=== PATIENT | female | born 1980 | race Caucasian/White ===

== ENCOUNTER 2021-06-21 16:50 | Emergency (ER) | payer BC ==
[~2021-06-21] VITALS: Ht 162.6 cm; Wt 84.0 kg
[2021-06-21 18:44] LABS: BASO # 0.1 x10^3/uL (0.0-0.2); BASO % 1 % (0-3); EOS % 0 % (0-3); HEMATOCRIT 39.2 % (36.0-47.0); HEMOGLOBIN 13.1 g/dL (12.0-15.5); LYMPH # 1.5 x10^3/uL (1.0-4.8); LYMPH % 18 % (24-48); MEAN CORPUSCULAR HEMOGLOBIN 31 pg (25-35); MEAN CORPUSCULAR HGB CONC 34 g/dL (31-37); MEAN CORPUSCULAR VOLUME 93 fL (79-100); MONO # 0.8 x10^3/uL (0.0-1.1); MONO % 9 % (0-9); NEUT # 6.2 x10^3/uL (1.8-7.7); NEUT % 72 % (31-73); PLATELET COUNT 314 x10^3/uL (140-400); RED BLOOD COUNT 4.24 x10^6/uL (3.50-5.40); RED CELL DISTRIBUTION WIDTH 14.1 % (11.5-14.5); WHITE BLOOD COUNT 8.5 x10^3/uL (4.0-11.0)
[2021-06-21] MEDS ORDERED: ONDANSETRON PF 4 MG/2 ML VIAL. IVP ONE (18:45)
[2021-06-21 19:16] LABS: CALCIUM 8.8 mg/dL (8.5-10.1); CREATININE 0.9 mg/dL (0.6-1.0); GFR 69.7; POTASSIUM 3.7 mmol/L (3.5-5.1)
[2021-06-21 19:23] LABS: PREG TEST PT QUAL NEGATIVE (NEG)
[2021-06-21 19:28] LABS: ALBUMIN/GLOBULIN RATIO 1.1 (1.0-1.7); MAGNESIUM 2.3 mg/dL (1.8-2.4); TOTAL BILIRUBIN 0.2 mg/dL (0.2-1.0); TOTAL PROTEIN 7.8 g/dL (6.4-8.2)
--- NOTE | 2021-06-21 19:30 | EKG ---
[facility] [address] [place] [address] Test Date: 2021-06-21 Test Time: 18:38:28 Pat Name: MARCOS YOO Department: Room: Gender: F Surgery Aide: : 1980 Requested By: DEDE THORNE Order Number: [id number] Reading MD: Measurements Intervals Dittmer Rate: 57 P: 46 NM: 178 QRS: 62 QRSD: 88 T: 53 QT: 456 QTc: 447 Interpretive Statements SINUS RHYTHM S1,S2,S3 PATTERN T ABNORMALITY IN ANTEROSEPTAL LEADS ABNORMAL ECG RI6.02 No previous ECG available for comparison
--- NOTE | 2021-06-21 20:35 | RAD ---
Exam Date: 06/21/2021 8:06 PM XR CHEST 1V Indication: Reason: dizzy, palpitations / Spl. Instructions: / History: . FINDINGS/ IMPRESSION: The cardiac silhouette and pulmonary vasculature are within normal limits. There is no focal consolidation, pleural effusion or pneumothorax. The visualized osseous structures are intact. Electronically signed by: Cheo Davis MD (06/21/2021 8:33 PM) [facility]
[2021-06-21 21:46] LABS: BARBITURATES NEG (NEG); BENZODIAZEPINES NEG (NEG); CANNABINOIDS NEG (NEG); COCAINE NEG (NEG); METHADONE NEG (NEG); OPIATES NEG (NEG); PHENCYCLIDINE NEG (NEG)
[2021-06-21 21:51] LABS: AMPHETAMINE/METHAMPHETAMINE NEG (NEG)
--- NOTE | 2021-06-21 23:00 | PHYS DOC ---
Past Medical History Past Surgical History: No Surgical History Smoking Status: Never Smoker Alcohol Use: None General Adult EDM: Chief Complaint: DIZZY/LIGHT HEADED HPI: HPI: 41-year-old female who denies any significant past medical history, presents to the ED with complaints of " I feel like it was in a wave or a bubble," while walking back into her house after picking her kids up after work. Patient states she felt dizzy, her heart was racing, she became hot and clammy, had a headache and felt chest pressure, unsure if she was scared but states she wanted to hold her chest. States she felt like she was going to fall backwards and was woozy. Reports associated shortness of breath and nausea stating it felt like she was having a panic attack but has never had associated dizziness with it. Denies any associated fogginess, abdominal pain, achiness, lightheadedness or syncope. No prior history of syncope. States she worked outside today and has not eaten very much, only drink 32 ounces of water and was sweating a lot today (60 degrees outside today). LMP was 2 weeks ago. Reports she vapes daily and usually drinks about 2 beers and 1 shot to, to help her sleep at night. Oral meth user but quit in 2010. Denies any cocaine or methamphetamine abuse. Takes no routine prescribed medications. Has not been vaccinated for Covid. Had COVID twice, once in June 2020 and the second time in May 2021. Reports her brother and both grandparents have a history of coronary disease. Father with history of brain aneurysm. No personal or family history of AAA, AAD, CTD (ehlos danlos or marfans), cardiac arrhythmias (need for AICD), sudden or unexplainable (under 50 years of age or with exertion), or clotting disorders. Patient denies any past surgical history or hospitalizations. Review of Systems: Review of Systems: Constitutional: Denies fever or chills. [] Eyes: Denies change in visual acuity. [] HENT: Denies nasal congestion or sore throat. [] Respiratory: Denies cough or hemoptysis Cardiovascular: Denies syncope or edema. [] GI: Denies abdominal pain, vomiting, bloody stools or diarrhea. [] : Denies dysuria or vaginal bleeding Musculoskeletal: Denies back pain or joint pain. [] Integument: Denies rash or blistering lesions Neurologic: Denies neck stiffness, focal weakness or sensory changes. [] Endocrine: Denies polyuria or polydipsia. [] Lymphatic: Denies swollen glands. [] Psychiatric: Denies depression or anxiety. [] Heart Score: C/O Chest Pain: Yes HEART Score for Chest Pain: HEART Score for Chest Pain Response (Comments) Value History Slighlty/Non-Suspicious 0 ECG Nonspecific Repolarizatio 1 Age < 45 0 Risk Factors 1 or 2 Risk Factors 1 Troponin < Normal Limit 0 Total 2 Risk Factors: Risk Factors: DM, Current or recent (<one month) smoker, HTN, HLP, family history of CAD, obesity. Risk Scores: Score 0 - 3: 2.5% MACE over next 6 weeks - Discharge Home Score 4 - 6: 20.3% MACE over next 6 weeks - Admit for Clinical Observation Score 7 - 10: 72.7% MACE over next 6 weeks - Early Invasive Strategies Current Medications: Current Medications Medications (Trade) Dose Ordered Sig/Yousif Start Time Stop Time Status Last Admin Dose Admin Ondansetron HCl (Zofran) 4 mg 1X ONCE 06/21/21 18:45 06/21/21 18:47 DC Allergies: Allergies: Allergies Coded Allergies Type Severity Reaction Last Updated Verified No Known Drug Allergies 06/21/21 No Physical Exam: PE: Constitutional: Well developed, well nourished, no acute distress, non-toxic appearance. HENT: Normocephalic, atraumatic, Eyes: EOMI, conjunctiva normal, no discharge. Neck: Normal range of motion, supple, Cardiovascular: S1/2 present, regular rhythm Lungs & Thorax: Speaking in full sentences, bilateral equal chest rise, no tachypnea or increased work of breathing Abdomen: soft, no tenderness, Skin: Warm, dry, no erythema, no rash. [] Back: No tenderness, no CVA tenderness. [] Extremities: No tenderness, no cyanosis, no lower extremity edema Neurologic: Alert and oriented X 3, normal motor function, normal sensory function, no focal deficits noted. [] Psychologic: Affect normal, judgement normal, mood normal. [] Current Patient Data: Labs: Laboratory Tests Test 06/21/21 18:35 06/21/21 21:15 06/21/21 21:40 White Blood Count 8.5 x10^3/uL (4.0-11.0) Red Blood Count 4.24 x10^6/uL (3.50-5.40) Hemoglobin 13.1 g/dL (12.0-15.5) Hematocrit 39.2 % (36.0-47.0) Mean Corpuscular Volume 93 fL (79-100) Mean Corpuscular Hemoglobin 31 pg (25-35) Mean Corpuscular Hemoglobin Concent 34 g/dL (31-37) Red Cell Distribution Width 14.1 % (11.5-14.5) Platelet Count 314 x10^3/uL (140-400) Neutrophils (%) (Auto) 72 % (31-73) Lymphocytes (%) (Auto) 18 % (24-48) L Monocytes (%) (Auto) 9 % (0-9) Eosinophils (%) (Auto) 0 % (0-3) Basophils (%) (Auto) 1 % (0-3) Neutrophils # (Auto) 6.2 x10^3/uL (1.8-7.7) Lymphocytes # (Auto) 1.5 x10^3/uL (1.0-4.8) Monocytes # (Auto) 0.8 x10^3/uL (0.0-1.1) Eosinophils # (Auto) 0.0 x10^3/uL (0.0-0.7) Basophils # (Auto) 0.1 x10^3/uL (0.0-0.2) D-Dimer (Bette) < 0.27 ug/mlFEU Sodium Level 140 mmol/L (136-145) Potassium Level 3.7 mmol/L (3.5-5.1) Chloride Level 103 mmol/L (98-107) Carbon Dioxide Level 27 mmol/L (21-32) Anion Gap 10 (6-14) Blood Urea Nitrogen 16 mg/dL (7-20) Creatinine 0.9 mg/dL (0.6-1.0) Estimated GFR (Cockcroft-Gault) 69.7 BUN/Creatinine Ratio 18 (6-20) Glucose Level 103 mg/dL (70-99) H Calcium Level 8.8 mg/dL (8.5-10.1) Phosphorus Level 4.3 mg/dL (2.6-4.7) Magnesium Level 2.3 mg/dL (1.8-2.4) Total Bilirubin 0.2 mg/dL (0.2-1.0) Aspartate Amino Transferase (AST) 19 U/L (15-37) Alanine Aminotransferase (ALT) 18 U/L (14-59) Alkaline Phosphatase 36 U/L (46-116) L Troponin I High Sensitivity 7 ng/L (4-50) 8 ng/L (4-50) Total Protein 7.8 g/dL (6.4-8.2) Albumin 4.0 g/dL (3.4-5.0) Albumin/Globulin Ratio 1.1 (1.0-1.7) Serum Test, Qualitative Negative (NEG) Urine Opiates Screen Neg (NEG) Urine Methadone Screen Neg (NEG) Urine Barbiturates Neg (NEG) Urine Phencyclidine Screen Neg (NEG) Urine Amphetamine/Methamphetamine Neg (NEG) Urine Benzodiazepines Screen Neg (NEG) Urine Cocaine Screen Neg (NEG) Urine Cannabinoids Screen Neg (NEG) Urine Ethyl Alcohol Neg (NEG) Laboratory Tests 06/21/21 18:35 Laboratory Tests 06/21/21 18:35 Vital Signs: Vital Signs Date Time Temp Pulse Resp B/P (MAP) Pulse Ox O2 Delivery O2 Flow Rate FiO2 06/21/21 21:55 60 20 130/69 (89) 97 Room Air 06/21/21 17:13 97.9 97.9 EKG: EK sinus bradycardia 57 bpm, no axis deviation, normal intervals, T wave inversion V2 and V3, no ST elevation or ST depression RN reported bigeminy on mobile developer on arrival Radiology/Procedures: Radiology/Procedures: IMAGING REPORT Signed PATIENT: MARCOS YOO ACCOUNT: [id number] : 1980 LOCATION: ER AGE: 41 SEX: F EXAM STATUS: REG ER ORD. PHYSICIAN: DEDE THORNE DO REASON: dizzy, palpitations PROCEDURE: PORTABLE CHEST 1V Exam Date: 06/21/2021 8:06 PM XR CHEST 1V Indication: Reason: dizzy, palpitations / Spl. Instructions: / History: . FINDINGS/ IMPRESSION: The cardiac silhouette and pulmonary vasculature are within normal limits. There is no focal consolidation, pleural effusion or pneumothorax. The visualized osseous structures are intact. Electronically signed by: Rebekah Davis MD (06/21/2021 8:33 PM) [facility] DICTATED and SIGNED BY: REBEKAH DAVIS MD DATE: 06/21/[id number] 0 Impression: PERC rule for pulmonary embolus 0 criteria No need for further workup, as <2% chance of PE. If no criteria are positive and clinicians pre-test probability is <15%, PERC Rule criteria are satisfied. Course & Med Decision Making: Course & Med Decision Making Pertinent Labs and Imaging studies reviewed. (See chart for details) Concern for near syncopal event after physical exertion at work and poor oral hydration. Patient with strong family history of CAD. Patient with no active chest pressure in the emergency department. 2 troponins are negative. D-dimer is within normal limits and patient is PERC rule negative. Chest x-ray is unremarkable. Patient is a negative drug screen. On reevaluation patient states " I think this is just anxiety? " Patient reports increased stress in her life and decreased sleep. Prescribe Atarax as needed for anxiety and warned against taking alcohol with this medication. Urinalysis was pending-pharmacy information given, tolerated cephalosporins. Will discharge home with strict ED return precautions were given for parent syncope, chest pressure, shortness of breath or neurologic deficits. Encouraged urgent outpatient follow-up with PMD for reevaluation, consider cardiology evaluation given family history of CAD. Life-threatening processes were considered but are low suspicion at this time, given history, physical exam and ED workup. Pt was educated on all prescription medications and adverse effects. All patient's questions were answered and pt was stable at time of discharge. Life/limb-threatening differential includes but is not limited to, abdominal aortic aneurysm, aortic dissection, acute coronary syndrome, anemia, valvular disorder, cerebrovascular accident, drug overdose or toxidrome, arrhythmia, prolonged QT syndrome, hemorrhage, heat illness, intracranial hemorrhage, infection including meningitis/encephalitis/sepsis/toxic shock/myocarditis, vertebrobasilar insufficiency, seizure, medication adverse event, illicit drug use, electrolyte disorder I have spoken with the patient and/or caregivers. I explained the patient's condition, diagnoses and treatment plan based on the information available to me at this time. I have answered the patient and/or caregiver's questions and addressed any concerns. The patient and/or caregivers have a good understanding of patient's diagnosis, condition and treatment plan as can be expected at this point. Vital signs have been stable. Patient's condition is stable and appropriate for discharge from the emergency department. Patient will pursue further outpatient evaluation with primary care physician or other designated or consulting physician as outlined in the discharge instructions. The patient and/or caregivers are agreeable to this plan of care and follow-up instructions have been explained in detail. The patient and/or caregivers have received these instructions in written form and have expressed an understanding of the discharge instructions. The patient and/or caregivers are aware that any significant change of condition or worsening of symptoms should prompt immediate return to this or the closest emergency department or call to [facility] Disclaimer: [place] Disclaimer: This electronic medical record was generated, in whole or in part, using a voice recognition dictation system. Departure Departure Impression: Primary Impression: Near syncope Additional Impression: Palpitations Disposition: 01 HOME / SELF CARE / HOMELESS Condition: STABLE Referrals: NO PCP (PCP) Follow-up with your primary care physician in 24 to 48 hours OR FOLLOW UP WITH FAMILY MEDICINE: [address] [facility] [address] [place] [address] Patient Instructions: Palpitations, Syncope Additional Instructions: FOLLOW UP WITH CARDIOLOGY: FOR DEFINITIVE MANAGEMENT of syncope [facility] [address] [facility] [address] [place] [address] EMERGENCY DEPARTMENT GENERAL DISCHARGE INSTRUCTIONS Thank you for coming to [facility] Emergency Department (ED) today and trusting us with you care. We trust that you had a positive experience in our Emergency Department. If you wish to speak to the department management, you may call the Director at [phone]. YOUR FOLLOW UP INSTRUCTIONS ARE FOLLOWS: 1. Do you have a private Doctor? If you do not have a private doctor, please ask for a resource list of physicians or clinics that may be able to assist you with fo llow up care. 2. The Emergency Physicain has interpreted your x-rays. The X-Ray specialist will also review them. If there is a change in the findings, you will be notified in 48 hours when at all possible. 3. A lab test or culture has been done, your results will be reviewed and you will be notified if you need a change in treatment. ADDITIONAL INSTRUCTIONS AND INFORMATION: 1. Your care today has been supervised by a physician who is specially trained in emergency care. Many problems require more than one evaluation for a complete diagnosis and treatment. We recommend that you schedule your follow up appointment as recommended to ensure complete treatment of you illness or injury. If you are unable to obtain follow up care and continue to have a problem, or if your condition worsens, we recommend that you return to the ED. 2. We are not able to safely determine your condition over the phone nor are we able to give sound medical advice over the phone. For these safety reasons, if you call for medical advice we will ask you to come to the ED for further evaluation. 3. If you have any questions regarding these discharge instructions please call the ED at [phone]. SAFETY INFORMATION: In the interest of safety, wellness, and injury prevention; we encourage you to wear your sealbelt, if you smoke; quite smoking, and we encourage family to use a protective helmet for bicycling and other sporting events that present an increased risk for head injury. IF YOUR SYMPTOMS WORSEN OR NEW SYMPTOMS DEVELOP, OR YOU HAVE CONCERNS ABOUT YOUR CONDITION; OR IF YOUR CONDITION WORSENS WHILE YOU ARE WAITING FOR YOUR FOLLOW UP APPOINTMENT; EITHER CONTACT YOUR PRIMARY CARE DOCTOR, THE PHYSICIAN WHOSE NAME AND NUMBER YOU WERE GIVEN, OR RETURN TO THE ED IMMEDIATELY. Scripts Hydroxyzine Hcl (HYDROXYZINE HCL) 25 Mg Tablet 1 TAB PO TID for anxiety, #30 TAB Do not mix with other sedatives including alcohol Prov: DEDE THORNE DO 06/22/21 DEDE THORNE DO Jun 21, 2021 23:00
[2021-06-22 00:55] VITALS: BP 117/65
[2021-06-22] MEDS ORDERED: HYDR25TA PO (00:55)
== END 2021-06-22 01:35 | disposition home or self-care (01) ==
LOC: ER 16:50
DX: R55 Syncope and collapse (principal); R00.2 Palpitations; R51.9 Headache, unspecified; R07.89 Other chest pain
CPT/HCPCS: 36415; 71045; 80053; 80307; 81025; 83735; 84100; 84484; 84703; 85025; 85379; 93005; 99285-25